=== PATIENT | female | born 2000 | race Two or more races ===

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

== ENCOUNTER 2021-11-01 08:04 | Outpatient (CLI) | payer OTHER ==
[~2021-11-01 08:04] MED LIST: PRENATAL CAPLE1 EAC1 PO; Tylenol #3 PO
== END 2021-11-01 09:09 | disposition home or self-care (01) ==
LOC: PRENATAL 08:04
PROVIDERS: ATTEND Obstetrics & Gynecology Maternal & Fetal Medicine
DX: O35.0XX1 Maternal care for (suspected) central nervous system malformation in fetus, fetus 1 (principal); O35.3XX1 Maternal care for (suspected) damage to fetus from viral disease in mother, fetus 1; O98.512 Other viral diseases complicating pregnancy, second trimester; Z36.89 Encounter for other specified antenatal screening; Z3A.24 24 weeks gestation of pregnancy

== ENCOUNTER 2022-09-12 05:15 | Day surgery (SDC) | payer OTHER ==
[~2022-09-12] VITALS: Ht 165.1 cm; Wt 81.2 kg
[2022-09-12] MEDS ORDERED: IBU600 MG PO (08:52)
[2022-09-12] MEDS ORDERED: ACETAMINOPHEN-1 EAC2 PO (08:52)
== END 2022-09-12 12:15 | disposition home or self-care (01) ==
LOC: CIR.AMB 05:15
PROVIDERS: ATTEND Obstetrics & Gynecology
DX: Z30.2 Encounter for sterilization (principal); Z71.6 Tobacco abuse counseling; F17.200 Nicotine dependence, unspecified, uncomplicated